=== PATIENT | male | born 1990 | race Hispanic/Latino ===

== ENCOUNTER 2022-09-19 16:43 | Emergency (ER) | payer OTHER ==
--- OUTSIDE RECORDS SUMMARY | 2022-09-19 16:46 | XMS REPORT | Continuity of Care Document ---
:1990 Author Organization [facility] t Address [address] [place] [address] [place] [address] Care Team Providers Name Role Phone Herber Swain Primary Care Physician Disease, Zeinab & Pcp Pedi Infec Attending Clinician Unavailabl e Viviane Carney DO Attending Clinician VIVIANE CARNEY Attending Clinician Unavailable Doctor Unassigned, Lupus Attending Clinician Unavailable Carlyn Corcoran RN Attending Clinician Unavailable Only, Ang Db Test Attending Clinician Unavailable Janine Fontenot Attending Clinician JANINE ROTHMAN Attending Clinician Unavailable Emily Lu MD Attending Clinician Lab, Adc Fam Pob I Attending Clinician Unavailable Asiya Kaur Attending Clinician ASIYA CARRENO Attending Clinician Unavailable Elmo New Attending Clinician ELMO LIMON Attending Clinician Unavailable Pcp, Patient Does Not Have A Attending Clinician [phone] Payers Payer Name Policy Type Policy Number Effective Date Expiration Date S ource Problems Condition Condition Condition Status Onset Resolution Last Treating Co mments Source Name Details Category Date Date Treatment Clinician Date No known No known Disease Unive rs active active ity of problems problems [facility] Allergies, Adverse Reactions, Alerts Allergy Allergy Status Severity Reaction(s) Onset Inactive Treating Comm ents Source Name Type Date Date Clinician NO KNOWN Drug Active Univers ALLERGIE Class ity of S [facility] Social History Social Habit Start Date Stop Date Quantity Comments Source History SDOH University o f Alcohol Frequency [place] [facility] History SDOH University o f Alcohol Std [place] [facility] Drinks Branch History SDOH University o f Alcohol Binge [place] [facility] Exposure to 2022-04-08 2022-04-18 Not sure [facility] SARS-CoV-2 00:00:00 07:45:00 [facility] (event) Branch Tobacco use and 2020-12-01 2020-12-01 Former smokeless Uni versity of exposure 00:00:00 00:00:00 tobacco user [place] [facility] Alcohol intake 2020-12-01 2020-12-01 Ex-drinker University of 00:00:00 00:00:00 (finding) [facility] Alcohol Comment 2020-12-01 2020-12-01 sober x 3 years Univ ersity of 00:00:00 00:00:00 [facility] Sex Assigned At [birth year] Universit y of 00:00:00 00:00:00 [facility] Smoking Status Start Date Stop Date Source Unknown if ever smoked [facility] Never smoked tobacco [facility] Medications Ordered Filled Start Stop Current Ordering Indication Dosage Frequency Signature Comments Components Source Medication Medication Date Date Medication? Clinician (SIG) Name Name darian 2022- No [id number] 500mg Take 1 Univers n 500 mg 204-22 tablet by ity o f tablet 00:00: 05:59 mouth in [place] 00 :00 the Medical morning [place] for 3 days. azithromyci 2022- No [id number] 500mg Take 1 Univers n 500 mg 2-04-22 tablet by ity o f tablet 00:00: 05:59 mouth in [place] 00 :00 the Medical morning [place] for 3 days. azithromyci 2022- No [id number] 500mg Take 1 Univers n 500 mg 204-22 tablet by ity o f tablet 00:00: 05:59 mouth in [place] 00 :00 the Medical morning [place] for 3 days. atovaquone- Yes 1{tbl} Take 1 Un kenn proguaniL 2-01 tablet by ity o f 250-100 mg 00:00: mouth in [place] as per tablet 00 the morning. Branch Start 2 days before travel, continue for 7 days after return atovaquone- Yes 1{tbl} Take 1 Un kenn proguaniL 2-01 tablet by ity o f 250-100 mg 00:00: mouth in [place] as per tablet 00 the morning. Branch Start 2 days before travel, continue for 7 days after return atovaquone- Yes 1{tbl} Take 1 Un kenn proguaniL 2-01 tablet by ity o f 250-100 mg 00:00: mouth in [place] as per tablet 00 the morning. Branch Start 2 days before travel, continue for 7 days after return SERTraline 2021-03 Yes 50mg Take 50 mg U nivers 50 mg 2-16 by mouth ity of tablet 00:00: in the [place] morning. Medical Branch SERTraline 2021-03 Yes 50mg Take 50 mg U nivers 50 mg 2-16 by mouth ity of tablet 00:00: in the morning. Medical Branch SERTraline 2021-03 Yes 50mg Take 50 mg U nivers 50 mg 2-16 by mouth ity of tablet 00:00: in the [place] morning. Medical Branch amlodipine- 2021-03 Yes 1{tbl} Take 1 Un kenn valsartan 2-12 tablet by ity o f 10-320 mg 00:00[place] tablet 00 the morning. Branch amlodipine- 2021-03 Yes 1{tbl} Take 1 Un kenn valsartan 2-12 tablet by ity o f 10-320 mg 00:00: [place] tablet the morning. Branch amlodipine- 2021-03 Yes 1{tbl} Take 1 Un kenn valsartan 2-12 tablet by ity o f 10-320 mg 00:00: [place] tablet the morning. Branch metFORMIN 2021-03 Yes 1000mg Take 1,000 Univers 1,000 mg 2-09 mg by ity of tablet 00:00: mouth in [place] 00 the Medical morning Branch and 1,000 mg in the evening. metFORMIN 2021-03 Yes 1000mg Take 1,000 Univers 1,000 mg 2-09 mg by ity of tablet 00:00: mouth in [place] 00 the Medical morning Branch and 1,000 mg in the evening. metFORMIN 2021-03 Yes 1000mg Take 1,000 Univers 1,000 mg 2-09 mg by ity of tablet 00:00: mouth in [place] 00 the Medical morning Branch and 1,000 mg in the evening. No known No Univers medications -17 ity of 13:08: [address] No known No Univers medications - ity of 13:08: [address] predniSONE 2020- No [id number] Take 4 Univers 10 mg 9 10-03 tablets by ity of tablet 00:00: 04:59 mouth [place] 00 :00 daily for Medical 5 days, Branch THEN 2 tablets daily for 5 days, THEN 1 tablet daily for 5 days. No known No Univers medications ity of [facility] No known No [facility] Immun[facility] Ordered Filled Immunization Date Status Comments [facility] e Immunization Name Name Yellow Fever, Live 2022-04-18 Completed Univer sity of 00:00:00 [facility] IPV 2022-04-18 Completed University of 00:00:00 [facility] Typhoid Vaccine, Vi 2022-04-18 Completed Unive rsity of Capsular 00:00:00 [facility] Polysaccharide, IM Branch Yellow Fever, Live 2022-04-18 Completed Univer sity of 00:00:00 [facility] IPV 2022-04-18 Completed University of 00:00:00 [facility] Typhoid Vaccine, Vi 2022-04-18 Completed Unive rsity of Capsular 00:00:00 [facility] Polysaccharide, IM Branch Yellow Fever, Live 2022-04-18 Completed Univer sity of 00:00:00 [facility] IPV 2022-04-18 Completed University of 00:00:00 [facility] Typhoid Vaccine, Vi 2022-04-18 Completed Unive rsity of Capsular 00:00:00 [facility] Polysaccharide, IM Branch SARS-COV-2 COVID-19 2021-01-19 Completed Unive rsity of PFIZER VACCINE 00:00:00 [facility] bethany Branch Influenza Virus 2021-01-19 Completed Universit y of Vaccine Quad IM, 00:00:00 [facility] dical Preserv and ABX Branch Free 6 MO-64 YRS SARS-COV-2 COVID-19 2021-01-19 Completed Unive rsity of PFIZER VACCINE 00:00:00 [facility] Influenza Virus 2021-01-19 Completed Universit y of Vaccine Quad IM, 00:00:00 [place] Me dical Preserv and ABX Branch Free 6 MO-64 YRS SARS-COV-2 COVID-19 2021-01-19 Completed Unive rsity of PFIZER VACCINE 00:00:00 [facility] Influenza Virus 2021-01-19 Completed Universit y of Vaccine Quad IM, 00:00:00 [place] Me dical Preserv and ABX Branch Free 6 MO-64 YRS SARS-COV-2 COVID-19 2020-05-26 Completed Unive rsity of SUMI/J&J VACCINE 00:00:00 [facility] SARS-COV-2 COVID-19 2020-05-26 Completed Unive rsity of SUMI/J&J VACCINE 00:00:00 [facility] SARS-COV-2 COVID-19 2020-05-26 Completed Unive rsity of SUMI/J&J VACCINE 00:00:00 [facility] Vital Signs Vital Name Observation Time Observation Value Comments Source Body temperature 2022-04-18 13:50:[address] [facility] Body height 2022-04-18 13:50:00 198.1 cm [facility] Body weight 2022-04-18 13:50:00 144.6 kg [facility] BMI 2022-04-18 13:50:00 36.84 kg/m2 [facility] Systolic blood 2020-12-01 17:59:00 153 mm[Hg] Univer sity of pressure [facility] Diastolic blood 2020-12-01 17:59:00 98 mm[Hg] Unive rsity of pressure [facility] Heart rate 2020-12-01 17:55:00 98 /min [facility] Body temperature 2020-12-01 17:55:00 36.94 Jahaira [facility] [place] [facility] Respiratory rate 2020-12-01 17:55:00 18 /min [facility] [place] [facility] Body height 2020-12-01 17:55:00 198.1 cm [facility] Body weight 2020-12-01 17:55:00 143.592 kg [facility] BMI 2020-12-01 17:55:00 36.58 kg/m2 [facility] Oxygen saturation in 2020-12-01 17:55:00 98 /min [facility] Arterial blood by [facility] Pulse oximetry Branch Procedures Procedure Date / Time Performing Clinician Source Performed POLIOMYELITIS 2022-04-18 14:26:44 Shepherd [facility] [place] IMMUNIZATN,INACTV,SQ [facility] YELLOW FEVER 2022-04-18 14:26:44 Shepherd [facility] [place] IMMUNIZATN,LIVE,SUBCUT [facility] B ranch TYPHOID VACCINE, 2022-04-18 14:26:44 Shepherd [facility] CAPSULAR POLYSACCHARIDE, [facility] IM ASSIGNMENT OF BENEFITS 2022-04-18 13:48:48 Doctor Unassigned, No [facility] PATIENT FINANCIAL 2022-04-18 13:48:33 Doctor Unassigned, No [facility] Encounters Start End Encounter Admission Attending Care Care Encounter Source Date/Time Date/Time Type Type Clinicians Facility Department ID 2022-04-18 2022-04-18 Office Disease, Zeinab & Pcp Pedi Infec [facility] [id number] Univers 08:00:00 08:30:00 Visit Viviane Carney SPECIALTY [id number] ity of [id number] [id number] [facility] 167 Branch 2022-04-18 2022-04-18 Outpatient R ANGELIKA [facility] [id number] Univers 08:00:00 08:00:00 VIVIANE macias of [facility] 2022-04-18 2022-04-18 Orders Doctor [place] [id number] Univers 00:00:00 00:00:00 Only Unassigned, THADDEUS [id number] ity of [facility] [id number] [place] [id number] [place] [address] [place] 2021-02-15 2021-02-15 DADA Burgos [id number] Univers 00:00:00 00:00:00 Carlyn TRAVIS [id number] it y of HOSPITAL [id number] [place] as [phone] [address] 2021-02-14 2021-02-14 Laboratory Only, Ang Db Test [facility] [id number] Univers 20:26:22 20:41:22 Only Janine Rothman [id number] ity of [place] [id number] [place] MAGAN?BLEA [id number] [facility] [address] [facility] OFFICE [facility] 2021-02-14 2021-02-14 Outpatient R STEPHAN [facility] [id number] Univers 20:45:00 20:37:39 JANINE andreysaleem o [facility] 2020-12-01 2020-12-01 Urgent Emily Lu [facility] [id number] Univers 12:45:54 13:08:03 Care Janine Rothman [id number] ity of [place] [id number] [place] Magan?Blea [id number] [facility] [address] [facility] Office Building 2020-12-01 2020-12-01 Outpatient R STEPHAN [facility] [id number] Univers 13:00:00 13:00:00 JANINE andreysaleem o f [facility] 2019-11-18 2019-11-18 Laboratory Lab, Adc Fam Pob I [facility] 1.2. [id number] Univers 08:07:31 08:27:31 Only Asiya Carreno [facility] [id number] ity of [place] [id number] [place] as Professio [phone] Nd val [address] Office Building One 2019-11-18 2019-11-18 Outpatient R HUBERT [facility] [id number] Univers 08:00:00 08:00:[address] [facility] 2019-09-19 2019-09-19 Laboratory Lab, [facility] Fam Pob I [facility] 1.2. [id number] Univers 08:57:52 09:17:52 Only [place] Limno [id number] ity of [place] [id number] [place] Professio [phone] [facility] 044 [place] Office [facility] One 2019-09-19 2019-09-19 Outpatient R SAVANNAH [facility] [id number] Univers 09:00:00 09:00:[address] [facility] 2019-09-11 2019-09-11 Letter Pcp, [facility] [id number] Univers 00:00:00 00:00:00 (Out) Patient Denisha [id number] i ty of Does Not [place] [id number] [place] as Have A Professio [phone] [facility] 353 [facility] 2019-09-10 2019-09-10 Laboratory Lab, [facility] Pob I [facility] 1.2. [id number] [id number] Univers 08:22:25 08:42:25 Only Asiya Carreno [id number] ity of [place] [id number] [place] Professio [phone] [facility] 044 [place] Office Building One 2019-09-10 2019-09-10 Outpatient R HUBERT [facility] [id number] Univers 08:20:00 08:20:[address] [facility] Results This patient has no known results.
[2022-09-19 18:35] LABS: Absolute Lymphocytes (CBC) 1.6 K/uL (0.7-4.9); Hematocrit 38.1 % (39.6-49.0); Lymphocytes % 25.7 % (15.3-44.8); MCV 81.6 fL (80-100); MPV 5.9 fL (7.6-11.3); RBC Red Blood Cell Count 4.67 M/uL (4.33-5.43)
[2022-09-19 18:51] LABS: Albumin 3.7 g/dL (3.4-5.0); Bilirubin Total 0.4 mg/dL (0.2-1.0); Potassium 3.8 mEq/L (3.5-5.1); Protein, Total 7.2 g/dL (6.4-8.2)
[2022-09-19 19:15] LABS: Specific Gravity > 1.030 (1.005-1.030); Urine Bacteria None Seen /HPF (<20); Urine Bilirubin NEGATIVE (Negative); Urine Blood Negative (Negative); Urine Clarity Turbid (Clear); Urine Color Yellow (Yellow); Urine Glucose TRACE (Negative); Urine Mucus 4+ /HPF (None Seen); Urine Protein TRACE (Negative); Urine RBC <5 /HPF (None Seen); Urine Urobilinogen Normal (Normal)
--- NOTE | 2022-09-19 20:02 | RAD REPORT ---
EXAM DESCRIPTION: CT - Abdomen Pelvis W Contrast - 09/19/2022 7:35 pm CLINICAL HISTORY: diarrhea;Abd pain COMPARISON: No comparisons TECHNIQUE: Thin cut axial CT imaging of the abdomen and pelvis was performed following intravenous a dministration of 100 mL Isovue 300. Multiplanar reformats were generated and reviewed. All CT scans are performed using dose optimization technique as appropriate and may include automated exposure control or mA/KV adjustment according to patient size. FINDINGS: No suspicious findings in the lung bases. The liver, spleen, and pancreas show no suspicious findings. Gallbladder and biliary tree are also wi thout suspicious finding. Symmetric renal function is seen with no hydronephrosis or suspicious renal mass. Multifocal long segment mild small-bowel distention, with air-fluid levels. No focal transition point . Mild central mesenteric fat stranding and mildly prominent lymph nodes throughout the central mesen aria. No free air, free fluid or inflammatory stranding. No hernia, mass or bulky lymphadenopathy. Th e urinary bladder is without significant finding. No suspicious bony findings. IMPRESSION: Segmental mild small-bowel fluid distention and mild inflammatory changes in the central mesentery. Findings are nonspecific, but raise concern for acute infectious or inflammatory enteriti s.
--- NOTE | 2022-09-19 20:33 | EDPHYS ---
Physician Documentation [facility] Name: Sanju Zimmerman III Age: 31 yrs Sex: Male : 1990 Arrival Date: 09/19/2022 Time: 16:43 Bed 12 Private MD: Herber Rubalcava V ED Physician Naga Jarvis HPI: 09/19 17:15 This 31 yrs old Male presents to ER via Ambulatory with complaints of cp Abdominal Pain, Diarrhea. 17:15 The patient presents with abdominal pain mid abdomen. cp 17:15 The symptoms do not radiate. Associated signs and symptoms: Pertinent positives: cp diarrhea since August 26, Pertinent negatives: blood in stools, constipation, fever, testicular pain. The symptoms are described as waxing/waning. Historical: - Allergies: 17:11 No Known Allergies; ll1 - PMHx: 17:11 Diabetes mellitus; Hypertensive disorder; Hypercholesterolemia; ll1 - PSHx: 17:11 None; ll1 - Immunization history:: Adult Immunizations up to date. - Social history:: Smoking status: Patient/guardian denies using tobacco, Stopped _ months ago 6. ROS: 17:20 Constitutional: Negative for body aches, chills, fever, poor PO intake. cp 17:20 Cardiovascular: Negative for chest pain, palpitations. cp 17:20 Eyes: Negative for injury, pain, redness, and discharge. cp 17:20 ENT: Negative for drainage from ear(s), ear pain, sore throat, difficulty swallowing, difficulty handling secretions. 17:20 Respiratory: Negative for cough, shortness of breath, wheezing. 17:20 Abdomen/GI: Positive for abdominal pain, diarrhea, Negative for vomiting, constipation, anorexia, black/tarry stool, rectal bleeding. 17:20 Back: Negative for pain at rest, pain with movement. 17:20 Neuro: Negative for altered mental status, dizziness, headache, numbness, syncope, weakness. 17:20 All other systems are negative. Exam: 17:25 Constitutional: The patient appears in no acute distress, alert, awake, non-toxic, well cp developed, well nourished. 17:25 Head/Face: Normocephalic, atraumatic. cp 17:25 Eyes: Periorbital structures: appear normal, Conjunctiva: normal, no exudate, no injection, Sclera: no appreciated abnormality, Lids and lashes: appear normal, bilaterally. 17:25 ENT: External ear(s): are unremarkable, Nose: is normal, Mouth: Lips: moist, Oral mucosa: pink and intact, moist, Posterior pharynx: is normal, airway is patent, no erythema, no exudate. 17:25 Chest/axilla: Inspection: normal. 17:25 Cardiovascular: Rate: normal, Rhythm: regular. 17:25 Respiratory: the patient does not display signs of respiratory distress, Respirations: normal, no use of accessory muscles, no retractions, labored breathing, is not present, Breath sounds: are clear throughout, no decreased breath sounds, no stridor, no wheezing. 17:25 Abdomen/GI: Inspection: abdomen appears normal, Bowel sounds: active, all quadrants, Palpation: soft, in all quadrants, mild abdominal tenderness, in the mid abdomen, rebound tenderness, is not appreciated, involuntary guarding, is not appreciated. 17:25 Back: pain, is absent, ROM is normal. 17:25 Neuro: Orientation: to person, place \T\ time. Mentation: is normal. Vital Signs: 17:09 BP 164 / 103; Pulse 90; Resp 18; Temp 97.7; Pulse Ox 100% ; Weight 137.44 kg; Height 6 ll1 ft. 6 in. ; Pain 5/10; 19:18 BP 150 / 94; Pulse 78; Resp 18; Temp 98.5(O); Pulse Ox 100% on R/A; sg5 20:34 BP 148 / 59; Pulse 77; Resp 18; Temp 98.1(O); Pulse Ox 98% on R/A; sg5 17:09 Body Mass Index 35.01 (137.44 kg, 198.12 cm) ll1 17:09 Pain Scale: Adult ll1 MDM: 17:16 Patient medically screened. cp 18:00 Differential diagnosis: diverticulitis, gastritis, pancreatitis, colitis. cp 20:31 Data reviewed: vital signs, nurses notes, lab test result(s), radiologic studies, CT cp scan. 20:31 Consideration of Admission/Observation Escalation of care including cp admission/observation considered. I considered the following discharge prescriptions or medication management in the emergency department Medications were administered in the Emergency Department. See MAR. Counseling: I had a detailed discussion with the patient and/or guardian regarding: the historical points, exam findings, and any diagnostic results supporting the discharge/admit diagnosis, lab results, radiology results, the need for outpatient follow up, a phys assistant, to return to the emergency department if symptoms worsen or persist or if there are any questions or concerns that arise at home. Special discussion: Based on the patient's Hx, exam, and Dx evaluation, there is no indication for emergent surgery or inpatient Tx. It is understood by the patient/guardian that if the Sx's persist or worsen they need to return immediately for re-evaluation. 09/19 17:11 Order name: CBC with Diff; Complete Time: 19:03 cp 09/19 19:03 Interpretation: Normal except: HGB 13.0; HCT 38.1; MPV 5.9. cp 09/19 17:11 Order name: CMP; Complete Time: 19:03 cp 09/19 19:03 Interpretation: Normal except: CL 111; ANION GAP 4.8; GLUC 157; ALT 67. 09/19 17:11 Order name: Lipase; Complete Time: 19:03 cp 09/19 17:11 Order name: Urinalysis w/ reflexes; Complete Time: 20:06 cp 09/19 20:06 Interpretation: Normal except: UCLA Turbid; Urine SG > 1.030; UGLUC TRACE; UPROT TRACE; cp MUCUS 4+. 09/19 17:56 Order name: CT Abd/Pelvis - IV Contrast Only; Complete Time: 20:06 cp 09/19 17:11 Order name: IV Saline Lock; Complete Time: 18:27 cp 09/19 17:11 Order name: Labs collected and sent; Complete Time: 18:27 cp 09/19 20:23 Order name: Misc. Order: give antibiotics after collection of stool sample cp Administered Medications: 20:48 Drug: Ciprofloxacin PO 500 mg Route: PO; sg5 20:48 Drug: metroNIDAZOLE PO 500 mg Route: PO; sg5 Disposition: 09/20 10:00 Co-signature as Attending Physician, Naga Jarvis MD I reviewed the patient's care rn provided by the Advanced Practice Provider and agree with the diagnosis and treatment plan. Disposition Summary: 09/19/22 20:32 Discharge Ordered Location: Home cp Problem: new cp Symptoms: have improved cp Condition: Stable cp Diagnosis - Diarrhea, unspecified cp Followup: cp - With: Lonnie, Merrick, MD - When: 5 - 6 days - Reason: Recheck today's complaints Discharge Instructions: - Discharge Summary Sheet cp - Diarrhea, Adult cp Forms: - Medication Reconciliation Form cp - Thank You Letter cp - Antibiotic Education cp - Prescription Opioid Use cp - [email or web address] cp Prescriptions: - Zofran 4 mg Oral Tablet - take 1 tablet by ORAL route every 12 hours As needed; 20 tablet; Refills: 0, cp Product Selection Permitted - Cipro 500 mg Oral Tablet - take 1 tablet by ORAL route every 12 hours for 10 days; 20 tablet; Refills: 0, cp Product Selection Permitted - Metronidazole 500 mg Oral Tablet - take 1 tablet by ORAL route every 8 hours; 30 tablet; Refills: 0, Product cp Selection Permitted Signatures: Dispatcher [employer] Naga Linton MD MD rn Cory Mosqueda PA PA cp Lewis, Lynsay RN RN ll1 Yin Ward RN RN sg5
--- NOTE | 2022-09-19 20:33 | ER ---
Nurse's Notes [facility] Name: Sanju Zimmerman III Age: 31 yrs Sex: Male : 1990 Arrival Date: 09/19/2022 Time: 16:43 Bed 12 Private MD: Herber Rubalcava V Diagnosis: Diarrhea, unspecified Presentation: 09/19 17:09 Chief complaint: Patient states: Abdominal pain and diarrhea August 26. No fevers. ll1 Coronavirus screen: Vaccine status: Patient reports receiving the 2nd dose of the covid vaccine. Client denies travel out of the [place] in the last 14 days. Client presents with at least one sign or symptom that may indicate coronavirus-19. Standard/surgical mask placed on the client. Ebola Screen: Patient denies travel to an Ebola-affected area in the 21 days before illness onset. Initial Sepsis Screen: Does the patient meet any 2 criteria? No. Patient's initial sepsis screen is negative. Does the patient have a suspected source of infection? Yes: Acute abdominal pain. Risk Assessment: Do you want to hurt yourself or someone else? Patient reports no desire to harm self or others. Onset of symptoms was August 26, 2022. 17:09 Method Of Arrival: Ambulatory ll1 17:09 Acuity: BRYAN 3 ll1 Triage Assessment: 17:11 General: Appears in no apparent distress. Behavior is calm, cooperative, appropriate ll1 for age. GI: Reports lower abdominal pain, upper abdominal pain, diarrhea. Historical: - Allergies: 17:11 No Known Allergies; ll1 - PMHx: 17:11 Diabetes mellitus; Hypertensive disorder; Hypercholesterolemia; ll1 - PSHx: 17:11 None; ll1 - Immunization history:: Adult Immunizations up to date. - Social history:: Smoking status: Patient/guardian denies using tobacco, Stopped _ months ago 6. Screenin:44 [facility] ED Fall Risk Assessment (Adult) History of falling in the last 3 months, ko1 including since admission No falls in past 3 months (0 pts) Confusion or Disorientation No (0 pts) Intoxicated or Sedated No (0 pts) Impaired Gait No (0 pts) Mobility Assist Device Used No (0 pt) Altered Elimination No (0 pt) Score/Fall Risk Level 0 - 2 = Low Risk Oriented to surroundings, Maintained a safe environment, Educated pt \T\ family on fall prevention, incl call for assistance when getting out of bed, Assessed \T\ reinforced patient's understanding of fall precautions, Provided non-skid footwear, Hourly rounding (assess needs \T\ fall precautionary measures) done, Used ambulatory aids as needed (educated on \T\ assisted with), Used gait belt as appropriate. Abuse screen: Denies threats or abuse. Denies injuries from another. Nutritional screening: No deficits noted. Tuberculosis screening: No symptoms or risk factors identified. Assessment: 18:44 General: Appears in no apparent distress. comfortable, Behavior is calm, cooperative, ko1 appropriate for age. Pain: Complains of pain in abdomen. Neuro: No deficits noted. Cardiovascular: No deficits noted. Respiratory: No deficits noted. GI: Bowel sounds present X 4 quads. Abd is soft X 4 quads Reports lower abdominal pain, diarrhea. : No deficits noted. EENT: No deficits noted. Derm: No deficits noted. Musculoskeletal: No deficits noted. Vital Signs: 17:09 BP 164 / 103; Pulse 90; Resp 18; Temp 97.7; Pulse Ox 100% ; Weight 137.44 kg; Height 6 ll1 ft. 6 in. ; Pain 5/10; 19:18 BP 150 / 94; Pulse 78; Resp 18; Temp 98.5(O); Pulse Ox 100% on R/A; sg5 20:34 BP 148 / 59; Pulse 77; Resp 18; Temp 98.1(O); Pulse Ox 98% on R/A; sg5 17:09 Body Mass Index 35.01 (137.44 kg, 198.12 cm) ll1 17:09 Pain Scale: Adult ll1 ED Course: 16:45 Patient arrived in ED. rg4 16:45 Herber Rubalcava MD is Private Physician. rg4 16:46 Cory Mosqueda PA is [facility]. cp 16:46 Naga Jarvis MD is Attending Physician. cp 17:09 Arm band placed on. ll1 17:11 Triage completed. ll1 18:25 Inserted saline lock: 22 gauge in left antecubital area, using aseptic technique. Blood ll1 collected. 18:36 Manda Garcia, ANGELA is Primary Nurse. ko1 18:43 Urinalysis w/ reflexes Sent. ko1 18:44 Patient has correct armband on for positive identification. Bed in low position. Call ko1 light in reach. Side rails up X 1. Pulse ox on. NIBP on. Door closed. Noise minimized. 19:37 CT Abd/Pelvis - IV Contrast Only In Process Unspecified. EDMS 20:32 Merrick Fleming MD is Referral Physician. cp 20:48 No provider procedures requiring assistance completed. IV discontinued. sg5 Administered Medications: 20:48 Drug: Ciprofloxacin PO 500 mg Route: PO; sg5 20:48 Drug: metroNIDAZOLE PO 500 mg Route: PO; sg5 Medication: 20:48 VIS not applicable for this client. sg5 Outcome: 20:32 Discharge ordered by MD. cp 20:48 Discharged to home ambulatory, with significant other. sg5 20:48 Condition: good 20:48 Discharge instructions given to patient, Instructed on discharge instructions, follow up and referral plans. 20:49 Patient left the ED. sg5 Signatures: Dispatcher [employer] EDCT Cory Mosqueda PA PA cp Garcia, Rubi rg4 Kelly Newman, RN RN ll1 Manda Garcia, RN RN ko1 Yin Ward, RN RN sg5
[2022-09-19] MEDS ORDERED: CIPROFLOXACIN HCL 500 MG TAB ONE (20:52)
[2022-09-19] MEDS ORDERED: metroNIDAZOLE 500 MG TABLET ONE (20:53)
[2022-09-19 21:20] VITALS: BP 148/59; TEMP 98.1; O2SAT 98
== END 2022-09-19 20:49 | disposition home or self-care (01) ==
LOC: ER 16:43
DX: R19.7 Diarrhea, unspecified (principal); I10 Essential (primary) hypertension
CPT/HCPCS: 85025; 81001; 36415; 83690; 80053; 74177; 99284; Q9967